=== PATIENT | male | born 1960 | race Caucasian/White ===

== ENCOUNTER 2023-03-19 18:14 | Emergency (ER) | payer OTHER ==
[2023-03-19] MEDS ORDERED: Bacitracin Oint 1 GM U/D Packet TOP ONE (19:22)
== END 2023-03-19 19:45 | disposition home or self-care (01) ==
LOC: JP.ED 18:14
DX: S01.01XA Laceration without foreign body of scalp, initial encounter (principal); E78.00 Pure hypercholesterolemia, unspecified; I10 Essential (primary) hypertension; Z79.899 Other long term (current) drug therapy; W29.3XXA Contact with powered garden and outdoor hand tools and machinery, initial encounter
CPT/HCPCS: 12005; 99282